=== PATIENT | male | born 1985 | race Caucasian/White ===

== ENCOUNTER 2018-02-11 10:04 | Emergency (ER) | payer OTHER ==
[~2018-02-11] VITALS: Ht 188 cm; Wt 161.9 kg
[2018-02-11 10:13] VITALS: BP 156/85
[2018-02-11] MEDS ORDERED: LIDOCAINE MPF 1% - 5 mL VIAL 5 ML ONE (11:18)
[2018-02-11] MEDS ORDERED: LIDOCAINE MPF 1% 5mL VIAL INJ ONE (11:45)
[2018-02-11 11:53] VITALS: BP 140/76
== END 2018-02-11 11:53 | disposition home or self-care (01) ==
LOC: MED 10:04
DX: H66.41 Suppurative otitis media, unspecified, right ear (principal)
CPT/HCPCS: 69000; 99284; J2001

== ENCOUNTER 2019-02-04 02:29 | Emergency (ER) | payer OTHER ==
[~2019-02-04] VITALS: Ht 185.4 cm; Wt 166.5 kg
[2019-02-04 02:30] VITALS: BP 129/72
--- NOTE | 2019-02-04 02:30 | NUR ---
TO BED # 08 AMBULATORY
[2019-02-04] MEDS ORDERED: KETOROLAC 60 MG/2 ML VIAL IM ONE (02:40)
--- NOTE | 2019-02-04 02:40 | NUR ---
33 Y/O M PRESENTS TO ED WITH C/O LT LOWER BACK PAIN X2 DAYS. ACHING PAIN, RADIATING TO LT GROIN. PT DENIES HEMATURIA OR DYSURIA. NO TENDERNESS NOTED. PT REPORTS BACK DISCOMFORT DURING URINATION. PT STATES HE USES MARIJUANA FOR PAIN RELIEF AND OCCASIONALLY COCAINE WITH RECENT USE X2 DAYS AGO. BEDRAIL X1 UP. WILL CONTINUE TO MONITOR.
[2019-02-04 02:42] VITALS: BP 129/72
--- NOTE | 2019-02-04 02:45 | NUR ---
PT REFUSED TORADOL FOR PAIN STATING THAT HE WOULD RATHER TAKE A PILL. DR. COBB MADE AWARE.
--- NOTE | 2019-02-04 02:49 | NUR ---
Dr. Covington examining patient.
--- NOTE | 2019-02-04 02:59 | NUR ---
Patient discharged with v/s stable. Written and verbal after care instructions given and explained. Patient alert, oriented and verbalized understanding of instructions. Ambulatory with steady gait. All questions addressed prior to discharge. ID band removed. Patient advised to follow up with PMD. Rx of NORCO AND MOTRIN given. Patient educated on indication of medication including possible reaction and side effects. Opportunity to ask questions provided and answered.
== END 2019-02-04 02:59 | disposition home or self-care (01) ==
LOC: MED 02:29
DX: M54.5 Low back pain (principal)
CPT/HCPCS: 99283; J1885

== ENCOUNTER 2019-08-01 12:57 | Emergency (ER) | payer OTHER, SELFPAY ==
[~2019-08-01] VITALS: Ht 185.4 cm; Wt 170.1 kg
[2019-08-01 13:11] VITALS: BP 135/60
[2019-08-01] MEDS ORDERED: IBUPROFEN 600 MG TAB PO ONE (13:25)
--- NOTE | 2019-08-01 13:45 | NUR ---
c/o body aches, cough,weak x 1 day mom + covid
--- NOTE | 2019-08-01 13:54 | NUR ---
COVID SWAB COLLECTED AND SENT TO LAB.
[2019-08-01 13:56] VITALS: BP 135/60
--- NOTE | 2019-08-04 12:02 | NUR ---
Positive covid report received from Lab. 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
== END 2019-08-01 13:56 | disposition home or self-care (01) ==
LOC: EEVIPCON 12:57 → MED 12:57
DX: R05 Cough (principal); R50.9 Fever, unspecified; R19.7 Diarrhea, unspecified; R11.0 Nausea; Z20.828 Contact with and (suspected) exposure to other viral communicable diseases
CPT/HCPCS: 99283; U0003